=== PATIENT | male | born 1965 | race Caucasian/White ===

== ENCOUNTER 2016-06-26 11:54 | Emergency (ER) | payer MEDICAID ==
[2016-06-26 13:54] LABS: UDS - AMPHET NEGATIVE QUAL (NEGATIVE); UDS - BARB NEGATIVE QUAL (NEGATIVE); UDS - BENZO NEGATIVE QUAL (NEGATIVE); UDS - COCAINE NEGATIVE QUAL (NEGATIVE); UDS - METH NEGATIVE QUAL (NEGATIVE); UDS - OPIATE NEGATIVE QUAL (NEGATIVE); UDS - PCP NEGATIVE QUAL (NEGATIVE); UDS - THC NEGATIVE QUAL (NEGATIVE)
[2016-06-26 13:57] LABS: ALBUMIN 4.2 g/dL (3.4-5.0); ANION GAP 13.8 mmol/L (8-16); BILIRUBIN - TOTAL 1.26 mg/dL (0.2-1.3); CALCIUM 9.1 mg/dL (8.5-10.1); CARBON DIOXIDE 27.8 mmol/L (21.0-32.0); CREATININE - SERUM 1.2 mg/dL (0.6-1.3); POTASSIUM - SERUM 4.6 mmol/L (3.5-5.1); PROTEIN - SERUM 7.8 g/dL (6.4-8.2)
[2016-06-26 14:59] LABS: BASOPHILS 0.2 % (0.0-2.0); EOSINOPHILS 1.9 % (0-7); HEMATOCRIT 50.7 % (42.0-54.0); HEMOGLOBIN 18.1 g/dL (13.5-17.5); IMMATURE GRANULOCYTES 0.5 % (0-5); MCH 33.2 pg (26.0-34.0); MCHC 35.7 g/dL (31.0-37.0); MCV 92.9 fL (80.0-100.0); MEAN PLATELET VOLUME 10.1 fL (7.4-10.4); MONOCYTES 6.1 % (2-11); NEUTROPHILS 73.3 % (40-80); PLATELET COUNT 170 10x3/uL (130-400); RBC 5.46 10x6/uL (4.20-6.10); WBC 13.7 10x3/uL (4.8-10.8)
== END 2016-06-26 16:25 | disposition home or self-care (01) ==
LOC: D.ER 11:54
PROVIDERS: Family Medicine
DX: F23 Brief psychotic disorder (principal)

== ENCOUNTER 2016-08-28 18:56 | Emergency (ER) | payer MEDICAID ==
[2016-08-28 19:52] LABS: BASOPHILS 0.6 % (0-2); EOSINOPHILS 4.4 % (0-7); HEMATOCRIT 46.3 % (42.0-54.0); IMMATURE GRANULOCYTES 0.6 % (0-5); LYMPHOCYTES 33.2 % (15-50); MCH 33.3 pg (26.0-34.0); MCHC 36.7 g/dL (31.0-37.0); MCV 90.6 fL (80.0-100.0); MONOCYTES 5.4 % (2-11); NEUTROPHILS 55.8 % (40-80); PLATELET COUNT 143 10x3/uL (130-400); RBC 5.11 10x6/uL (4.20-6.10); RDW 12.4 % (11.5-14.5); WBC 9.9 10x3/uL (4.8-10.8)
[2016-08-28 20:08] LABS: APPEARANCE CLEAR (CLEAR); BILIRUBIN NEGATIVE (NEGATIVE); COLOR YELLOW (YELLOW); GLUCOSE NEGATIVE (NEGATIVE); KETONE NEGATIVE (NEGATIVE); LEUKOCYTE ESTERASE NEGATIVE (NEGATIVE); NITRITE NEGATIVE (NEGATIVE); PROTEIN NEGATIVE (NEGATIVE); UROBILINOGEN NORMAL (NORMAL)
[2016-08-28 20:31] LABS: UDS - AMPHET NEGATIVE QUAL (NEGATIVE); UDS - BARB NEGATIVE QUAL (NEGATIVE); UDS - BENZO NEGATIVE QUAL (NEGATIVE); UDS - COCAINE NEGATIVE QUAL (NEGATIVE); UDS - METH NEGATIVE QUAL (NEGATIVE); UDS - OPIATE NEGATIVE QUAL (NEGATIVE); UDS - PCP NEGATIVE QUAL (NEGATIVE); UDS - THC NEGATIVE QUAL (NEGATIVE)
[2016-08-28 20:52] LABS: ALBUMIN 4.3 g/dL (3.4-5.0); ANION GAP 14.5 mmol/L (8-16); BILIRUBIN - TOTAL 0.68 mg/dL (0.2-1.3); CALCIUM 9.1 mg/dL (8.5-10.1); CARBON DIOXIDE 24.6 mmol/L (21.0-32.0); CREATININE - SERUM 1.1 mg/dL (0.6-1.3); POTASSIUM - SERUM 4.1 mmol/L (3.5-5.1); PROTEIN - SERUM 7.5 g/dL (6.4-8.2)
== END 2016-08-28 20:06 | disposition home or self-care (01) ==
LOC: D.ER 18:56
PROVIDERS: Emergency Medicine
DX: F23 Brief psychotic disorder (principal); B19.20 Unspecified viral hepatitis C without hepatic coma; F17.200 Nicotine dependence, unspecified, uncomplicated

== ENCOUNTER 2017-11-21 04:15 | Emergency (ER) | payer SELFPAY ==
[~2017-11-21] VITALS: Ht 182.9 cm; Wt 90.9 kg
[2017-11-21 04:23] VITALS: Ht 182.9 cm; Wt 90.9 kg
[2017-11-21] MEDS ORDERED: DESERYL100 MG PO (04:25)
[2017-11-21] MEDS ORDERED: CELEXA20 MG PO (04:25)
[2017-11-21] MEDS ORDERED: CLEOCIN HCL300 MG PO (05:10)
[2017-11-21] MEDS ORDERED: NIZORAL 2 % CRE15 GM TOPICAL (05:10)
[2017-11-21 06:42] VITALS: BP 132/78
== END 2017-11-21 06:48 | disposition home or self-care (01) ==
LOC: D.ER 04:15
DX: L03.115 Cellulitis of right lower limb (principal); B35.3 Tinea pedis; F17.200 Nicotine dependence, unspecified, uncomplicated